=== PATIENT | female | born 1975 | race Caucasian/White ===

== ENCOUNTER → 2018-07-07 | Day surgery (SDC) | payer BC ==
[~2018-07-07] MED LIST: FENTANYL CITRATE/PF 100MCG/2 ML INJ ONE; GABAPENTIN300 MG PO; HAIR SKIN AND NAILS PO; MIDAZOLAM HCL 2 MG/2 ML VIAL ONE; MULTI-VITAMIN1 EACH PO; NOVOLOG SC; OR PHACO EYE KIT ONE; PREOP PHACO EYE KIT ONE; PROBIOTIC & AC1 EACH PO; SYNTHROID50 MCG PO; TUMERIC PO; [UNRECOGNIZED DRUG - OTHER] PO; [UNRECOGNIZED DRUG - OTHER] PO
[2018-07-07 13:05] VITALS: BP 131/69
== END | disposition home or self-care (01) ==
LOC: OR 10:15
PROVIDERS: ATTEND Ophthalmology
DX: H25.042 Posterior subcapsular polar age-related cataract, left eye (principal); E10.3493 Type 1 diabetes mellitus with severe nonproliferative diabetic retinopathy without macular edema, bilateral; M06.9 Rheumatoid arthritis, unspecified; E10.40 Type 1 diabetes mellitus with diabetic neuropathy, unspecified; G62.9 Polyneuropathy, unspecified; E03.9 Hypothyroidism, unspecified; D50.8 Other iron deficiency anemias; N92.1 Excessive and frequent menstruation with irregular cycle; Z79.4 Long term (current) use of insulin; Z68.38 Body mass index [BMI] 38.0-38.9, adult
CPT/HCPCS: 66984; 81025; J2250; V2632

== ENCOUNTER → 2018-07-28 | Day surgery (SDC) | payer BC ==
[~2018-07-28] MED LIST changes: +DIPHENHYDRAMINE HCL INJ 50 MG/ML VIAL ONE; +LIDOCAINE HCL 1% 2 ML AMP ONE
[2018-07-28 14:15] VITALS: BP 143/72
== END | disposition home or self-care (01) ==
LOC: OR 10:07
PROVIDERS: ATTEND Ophthalmology
DX: H25.11 Age-related nuclear cataract, right eye (principal); E11.9 Type 2 diabetes mellitus without complications; I10 Essential (primary) hypertension; M79.7 Fibromyalgia; Z79.4 Long term (current) use of insulin
CPT/HCPCS: 36415; 66984; 81025; 82948; J1200; J2001; J2250; V2632